=== PATIENT | male | born 1945 | race Two or more races ===

== ENCOUNTER 2017-05-25 23:39 | Emergency (ER) | payer SELFPAY ==
[~2017-05-25] VITALS: Ht 185.4 cm; Wt 90.7 kg
[2017-05-25 23:29] VITALS: BP 142/80
[~2017-05-25 23:39] MED LIST: NKM
[2017-05-26] MEDS ORDERED: Albuterol ud Inhalation HHN ONE (00:15)
[2017-05-26 01:29] VITALS: BP 148/75
--- NOTE | 2017-05-26 01:44 | Emergency Room Report ---
History of Present Illness General Chief Complaint: Alcohol Intoxication Source: Patient, EMS Present Illness HPI This is a 71-year-old male who is homeless. He uses a wheelchair. He was brought in for alcohol intoxication. He was combative. Denies any trauma. No fever or chills. No nausea no vomiting. No other complaint Allergies: Coded Allergies: No Known Allergies (Unverified , 05/25/17) Patient History Past Medical History: see triage record, old chart reviewed, COPD Past Surgical History: other Pertinent Family History: none Social History: Reports: alcohol use, Denies: drug use Immunizations: other Reviewed Nursing Documentation: PMH: Agreed, PSxH: Agreed Review of Systems Eye: Denies: blurred vision, eye pain ENT: Denies: ear pain, nose congestion, throat swelling Respiratory: Denies: cough, shortness of breath Cardiovascular: Denies: chest pain, palpitations Gastrointestinal: Denies: abdominal pain, diarrhea, nausea, vomiting Musculoskeletal: Denies: back pain, joint pain Skin: Denies: rash Neurological: Denies: headache, numbness Endocrine: Denies: increased thirst, increased urine Hematologic/Lymphatic: Denies: easy bruising All Other Systems: negative except mentioned in HPI Physical Exam Vital Signs Date Time Temp Pulse Resp B/P Pulse Ox O2 Delivery O2 Flow Rate FiO2 05/25/17 23:21 98.4 76 16 142/80 100 05/26/17 00:14 Room Air vitals normal Sp02 EP Interpretation: reviewed, normal General Appearance: well appearing, no apparent distress, alert, other - Intoxicated, disheveled Head: normocephalic, atraumatic 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, left eye PERRL, bilateral eye EOMI ENT: hearing grossly normal, normal pharynx Neck: full range of motion, supple, no meningismus Respiratory: chest non-tender, lungs clear, normal breath sounds Cardiovascular #1: regular rate, rhythm, no murmur Gastrointestinal: normal bowel sounds, non tender, no mass, no organomegaly, no bruit, non-distended Musculoskeletal: back normal, normal range of motion Neurologic: alert, oriented x3 Psychiatric: other - Agitated Skin: warm/dry Medical Decision Making Diagnostic Impression: Primary Impression: Acute alcoholic intoxication Qualified Codes: F10.920 - Alcohol use, unspecified with intoxication, uncomplicated ER Course Patient with alcohol intoxication. No trauma to warrant CT scan. We'll observe until clinical sobriety. Patient already he said that he does want to stay in the hospital or shelter. Last Vital Signs Date Time Temp Pulse Resp B/P Pulse Ox O2 Delivery O2 Flow Rate FiO2 05/26/17 00:24 95 20 99 Room Air 05/25/17 23:29 98.4 142/80 Status: improved Disposition: HOME, SELF-CARE Condition: Stable Referrals: NOT CHOSEN IPA/MD,REFERRING (PCP) Patient Instructions: Alcohol Intoxication, [id number] Additional Instructions: abstain from alcohol. Followup with your Dr. in 7 days. Return if worse. ERIN OROZCO M.D. May 26, 2017 01:44
[2017-05-26] MEDS ORDERED: Haloperidol 5mg/ml Inj IM ONE (01:45)
[2017-05-26 03:29] VITALS: BP 145/86
[2017-05-26 05:29] VITALS: BP 149/82
[2017-05-26 06:44] VITALS: BP 149/82
[2017-05-26 07:10] VITALS: BP 145/81
== END 2017-05-26 07:10 | disposition home or self-care (01) ==
LOC: EDBD 23:39 → EMR 23:55
DX: F10.920 Alcohol use, unspecified with intoxication, uncomplicated (principal); J44.9 Chronic obstructive pulmonary disease, unspecified
CPT/HCPCS: 94640; 94664; 96372; 99283; J1630